=== PATIENT | male | born 1955 | race Caucasian/White ===

== ENCOUNTER → 2021-07-09 08:26 | Outpatient (CLI) | payer BC, SELFPAY ==
--- NOTE | ~2021-07-09 | MR_ITS ---
EXAMINATION: MR cervical spine wo con DATE: 07/09/2021 09:17 INDICATION: Cervicalgia. Bilateral hand numbness and tingling, right greater than left. TECHNIQUE: Magnetic resonance imaging (MRI) of the cervical spine was performed without intravenous c ontrast. Sequences included sagittal T2-weighted FSE, sagittal T2-weighted FS FSE, sagittal T1-weight ed FSE, axial MERGE and axial T2-weighted FSE. COMPARISON: Cervical spine radiographs dated 07/09/2021 FINDINGS: Bone alignment is normal. C5-C7 anterior spinal fusion with anterior plate and screw fixation. Remain ing vertebral body heights are normal. T1 hyperintense hemangiomas at T5 and T6. Bone marrow signal i ntensity is otherwise normal. Mild disc height loss at C4-C5 and C7-T1. Additional mild disc height l oss at multiple levels in the upper thoracic spine. Cord signal intensity is normal. Cervical soft ti ssues are unremarkable. The following disc levels are specifically discussed: C2-C3: The disc does not extend beyond the endplate margin. There is mild bilateral uncovertebral jad nt osteoarthritis. There is no facet joint osteoarthritis. There is no neural foraminal stenosis. The re is no central canal stenosis. C3-C4: Disc is minimally bulging with central annular fissure. There is mild left uncovertebral joint osteoarthritis. There is mild bilateral facet joint osteoarthritis. There is mild left neural forami nal stenosis. There is minimal central canal stenosis. C4-C5: Disc is mildly bulging. There is mild right uncovertebral osteoarthritis. There is mild to mod erate bilateral facet joint osteoarthritis. There is mild left neural foraminal stenosis. There is mi ld central canal stenosis with flattening of the ventral surface of the cord. C5-C6: The disc space is fused. There is moderate left and mild to moderate right facet joint osteoar thritis. There is mild bilateral neural foraminal stenosis. There is mild central canal stenosis with flattening of the right ventral surface of the cord. C6-C7: Disc space is fused. There is mild right and mild to moderate left facet joint osteoarthritis. There is mild left neural foraminal stenosis. There is no central canal stenosis. C7-T1: Disc is minimally bulging. There is no uncovertebral joint osteoarthritis. There is severe lef t and mild right facet joint osteoarthritis. There is mild left neural foraminal stenosis. There is m ild central canal stenosis with mild indentation of the right ventral surface of the cord. IMPRESSION: 1. Mild cervical spondylosis with instrumented C5-C7 anterior spinal fusion. Reviewed, dictated and finalized at location A.
== END ==
DX: M47.892 Other spondylosis, cervical region (principal); Z98.1 Arthrodesis status
CPT/HCPCS: 72141

== ENCOUNTER → 2021-07-09 08:35 | Outpatient (CLI) | payer BC, SELFPAY ==
--- NOTE | ~2021-07-09 | XR_ITS ---
[id number] 07/09/2021 09:51 Indication: Neck pain Procedure: 4 views of the cervical spine Comparison: No prior studies for comparison. Findings: There is normal cervical alignment. Vertebral body heights are maintained. There are surgic al changes consistent with anterior fusion and discectomy at C5-C7. Odontoid process within normal li mits. No acute fracture or traumatic malalignment. No prevertebral soft tissue swelling. Impression: 1: No acute abnormality of the cervical spine. Reviewed, dictated and finalized at location A. Impression: 1: No acute abnormality of the cervical spine.
== END ==
DX: M54.2 Cervicalgia (principal)
CPT/HCPCS: 72040